=== PATIENT | female | born 1950 | race Asian ===

== ENCOUNTER 2023-08-23 12:13 | Emergency (ER) | payer MEDICARE, OTHER ==
[~2023-08-23] VITALS: Ht 152.4 cm; Wt 59.1 kg
[~2023-08-23 12:13] MED LIST: ALEN70TA85 PO; ASPI81TA87 PO; LEVO50TA11 PO; LOSA-418; METF500T
[2023-08-23 13:19] VITALS: TEMP 98
[2023-08-23 13:49] LABS: BASOPHILS % (AUTO) 0.2 % (0.0-2.0); EOSINOPHILS % (AUTO) 0.1 % (1.0-6.0); HEMATOCRIT 35.8 % (36-46); HEMOGLOBIN 12.4 g/dL (12.0-16.0); LYMPHOCYTES % (AUTO) 9.4 % (22.0-44.0); MEAN CORPUSCULAR HEMOGLOBIN 33.3 pg (26.0-34.0); MEAN CORPUSCULAR HGB CONC 34.6 G/dL (31.0-37.0); MEAN CORPUSCULAR VOLUME 96 fL (80-100); MONOCYTES # (AUTO) 1.1 K/uL (0.1-1.0); NEUTROPHILS # (AUTO) 8.6 K/uL (1.8-7.7); NEUTROPHILS % (AUTO) 80.3 % (40.0-70.0); PLATELET COUNT (AUTO) 557 K/uL (150-450); RED BLOOD CELL COUNT(AUTO) 3.71 MIL/uL (4.00-5.20); WHITE BLOOD COUNT (AUTO) 10.7 K/uL (4.5-11.0)
[2023-08-23 14:01] LABS: GLUCOMETER DEV NAME(LOC) ER.7; GLUCOSE,POINT OF CARE 150 MG/DL (70-110)
[2023-08-23 14:09] LABS: B-TYPE NATRIURETIC PEPTIDE 31 pg/mL (0-100)
[2023-08-23 14:10] LABS: TROPONIN I-HIGH SENSITIVITY 198 ng/L (<51)
[2023-08-23 14:29] LABS: ALANINE AMINOTRANSFERASE 49 U/L (12-78); ALBUMIN 4.2 g/dL (3.4-5.0); ALKALINE PHOSPHATASE 87 U/L (46-116); ANION GAP 8 mmol/L (8-16); ASPARTATE AMINOTRANSFERASE 34 U/L (15-37); CALCIUM, TOTAL 9.5 mg/dL (8.8-10.5); CARBON DIOXIDE 30 mmol/L (22-29); CHLORIDE 76 mmol/L (98-107); CREATINE KINASE, TOTAL ONLY 358 U/L (26-192); CREATININE 0.84 mg/dL (0.60-1.30); GLOMERULAR FILTR. RATE CALC > 60 mL/min (>60); GLUCOSE,RANDOM 131 mg/dL (70-110); LIPASE 46 U/L (16-77); TOTAL PROTEIN, SERUM 8.4 g/dL (6.4-8.2); UREA NITROGEN, BLOOD 20 mg/dL (7-18)
[2023-08-23 14:30] LABS: SODIUM SERUM 114 mmol/L (136-145)
[2023-08-23 14:31] LABS: POTASSIUM 2.6 mmol/L (3.5-5.1)
[2023-08-23] MEDS: POTASSIUM CHLORIDE 20 MEQ ER TABLET PO ONE (14:59)
[2023-08-23] MEDS: SODIUM CHLORIDE 0.9% 1,000 ML IV ONE (15:00)
[2023-08-23 16:32] LABS: TROPONIN I-HIGH SENSITIVITY 180 ng/L (<51)
[2023-08-23] MEDS: METOCLOPRAMIDE HCL 5 MG/ML 2 ML VIAL IVP ONE (17:47)
[2023-08-23 19:04] VITALS: BP 131/82; PULSE 65; RESP 18
== END 2023-08-23 19:14 | disposition admitted as inpatient to this hospital (09) ==
LOC: EMS 12:15
DX: E87.1 Hypo-osmolality and hyponatremia (principal); E87.6 Hypokalemia; R79.89 Other specified abnormal findings of blood chemistry; E11.9 Type 2 diabetes mellitus without complications; I10 Essential (primary) hypertension; E03.9 Hypothyroidism, unspecified
CPT/HCPCS: 99285; 96374; 71045; 96361; 80053; 83930; 82550; 83690; 84484; 85025; 72040; 93005; 80051; 36415; J2765; J7030